=== PATIENT | female | born 1995 | race Caucasian/White ===

== ENCOUNTER 2018-01-07 13:00 | Outpatient (RCR) | payer MEDICAID, SELFPAY | END 2018-01-07 13:01 | disposition home or self-care (01) | LOC: PT 13:00 | PROVIDERS: Visit Provider Physical Medicine & Rehabilitation | DX: S14.109A Unspecified injury at unspecified level of cervical spinal cord, initial encounter (principal) | CPT/HCPCS: 97110; 97112; 97163; 97164; 97530 ==

== ENCOUNTER 2018-01-07 14:00 | Outpatient (RCR) | payer MEDICAID, SELFPAY | END 2018-01-07 14:01 | disposition home or self-care (01) | LOC: OT 14:00 | PROVIDERS: Visit Provider Physical Medicine & Rehabilitation | DX: S14.109A Unspecified injury at unspecified level of cervical spinal cord, initial encounter (principal) | CPT/HCPCS: 97110; 97112; 97164; 97166; 97530 ==